=== PATIENT | male | born 1960 ===

== ENCOUNTER 2017-04-10 09:10 | Day surgery (SDC) | payer OTHER ==
[2017-04-08 17:57] VITALS: BMI 30.3
[2017-04-10] MEDS ORDERED: Midazolam 2 MG/2 ML VIAL ONE (11:27)
[2017-04-10] MEDS ORDERED: Iodixanol 320 MG/ML 100 ML BOTTLE IV ONE (11:28)
--- NOTE | 2017-04-15 02:18 | CATH ---
APPROVED REPORT Procedure(s) performed: Left Heart Catheterization Left Ventriculogram Selective Right and Left Coronary Angiography HISTORY The patient is a 56 year-old male with a history of : previous CHF, tobacco history() : The patient is a former smoker, hypertension, dyslipidemia, family history of premature CAD. INDICATION The indication(s) include : murmur, jugular vein distension, arrhythmia, peripheral edema, atrial fibrillation, dyspnea. CASE TECHNIQUE The patient was brought electively to the Cardiac Catheterization Laboratory in a fasting state and was prepped and draped in a sterile manner. The right femoral groin was infiltrated with 2% Lidocaine subcutaneous anesthesia. A sheath was inserted into the right femoral artery without difficulty. Coronary angiography was performed using coronary diagnostic catheters. The left coronary system was accessed and visualized with a Diagnostic catheter. The right coronary system was accessed and visualized with a Diagnostic catheter. The left ventricle was accessed and visualized with a Diagnostic catheter. Left ventricular/Aortic Valve gradient assessed on pullback. Left ventriculogram was performed in KYRGYZ projection. Pre-demployment femoral angiogram was performed . Closure device was deployed with a 6 Fr Angioseal without any complications. The patient tolerated the procedure well and there were no complications associated with the procedure. Vessel Analysis The patient's coronary anatomy is left dominant. The left main coronary artery is a large size vessel without stenosis. The left main bifurcates to the left anterior descending and circumflex. The left anterior descending artery is a large size vessel without stenosis. The first diagonal branch is a medium size vessel without stenosis. The second diagonal branch is a small size vessel with stenosis. The circumflex artery is a medium size vessel without stenosis. There is a 50% stenosis in the proximal segment. The first obtuse marginal branch is a medium size vessel without stenosis. The right coronary artery is a medium size vessel without stenosis. The right posterior descending artery is a medium size vessel without stenosis. The right posterolateral branch is a medium size vessel without stenosis. Left Ventricle The left ventricle is DILATED in size with DECREASED contractility. The left ventricular ejection fraction is estimated to be 25%. The left ventricular end diastolic pressure is 24 mmHg. There was no gradient across the aortic valve upon pullback. Conclusion Single Vessel CAD [facility] Recommendations Smoking Cessation Aggressive Medical Therapy Medical Therapy
== END 2017-04-10 14:50 | disposition short-term general hospital (02) ==
LOC: C.CATHLAB 09:10
PROVIDERS: ATTEND Internal Medicine Cardiovascular Disease
DX: I25.10 Atherosclerotic heart disease of native coronary artery without angina pectoris (principal); I42.8 Other cardiomyopathies; I11.0 Hypertensive heart disease with heart failure; E78.5 Hyperlipidemia, unspecified; I48.91 Unspecified atrial fibrillation; I50.9 Heart failure, unspecified; Z82.49 Family history of ischemic heart disease and other diseases of the circulatory system; Z87.891 Personal history of nicotine dependence; Z23 Encounter for immunization
CPT/HCPCS: 93452; J0360; J2250; J3010; Q9967